=== PATIENT | female | born 1945 | race Asian ===

== ENCOUNTER 2017-12-14 13:36 | Emergency (ER) | payer SELFPAY ==
[~2017-12-14] VITALS: Ht 157.5 cm; Wt 60.0 kg
[2017-12-14 13:38] VITALS: BP 197/87
[2017-12-14] MEDS ORDERED: ZOLP10TA6 PO (13:49)
[2017-12-14] MEDS ORDERED: DULO60CA44 PO (13:49)
[2017-12-14] MEDS ORDERED: ATOR20TA65 PO (13:49)
[2017-12-14] MEDS ORDERED: ATEN-42 PO (13:49)
[2017-12-14] MEDS ORDERED: OLAN5TAB26 PO (13:49)
== END 2017-12-14 14:20 | disposition home or self-care (01) ==
LOC: ER 14:03
DX: Z13.9 Encounter for screening, unspecified (principal)
CPT/HCPCS: 99283